=== PATIENT | female | born 1935 | race Hispanic/Latino ===

== ENCOUNTER 2017-01-18 10:41 | Outpatient (CLI) | payer MEDICARE ==
--- NOTE | 2017-01-18 12:04 | Ultrasound Report ---
ULTRASOUND BLADDER RESIDUAL: INDICATION: Chronic kidney disease, stage II. Cystitis. Patient feeling a full bladder with urge to urinate. COMPARISON: None similar. FINDINGS: Sonographic estimation of pre- and postvoid urinary bladder volume performed. Prevoid urinary bladder suboptimally distended with volume of 15 cubic centimeters. Postvoid urinary bladder volume is 2 cubic centimeters. CONCLUSION: No significant postvoid residual noted, as described. Please correlate. Thank you for the opportunity to participate in this patient's care.
== END 2017-01-18 10:42 | disposition home or self-care (01) ==
LOC: US 10:41
PROVIDERS: ATTEND Internal Medicine Nephrology
DX: N18.2 Chronic kidney disease, stage 2 (mild) (principal); N32.89 Other specified disorders of bladder
CPT/HCPCS: 76857

== ENCOUNTER 2017-04-25 10:26 | Outpatient (CLI) | payer MEDICARE ==
--- NOTE | 2017-04-26 09:46 | Ultrasound Report ---
ULTRASOUND RENAL BILATERAL HISTORY: Acute renal failure, urinary outflow obstruction. TECHNIQUE: transabdominal ultrasound with color Doppler interrogation. FINDINGS: The right kidney measures 8.7cm. Right renal cortex: 1.3cm. The left kidney measures 9.5cm. Left renal cortex: 1.4cm. Both kidneys are borderline atrophic with mild increased renal cortical echotexture. A 2.3 cm cyst with fine internal septation is noted at the inferior pole of the left kidney. No evidence for calculus, mass, hydronephrosis or perinephric fluid. The views of the bladder and the region of the ureters appear normal. The bladder is not distended. IMPRESSION: Slightly echogenic kidneys consistent with renal parenchymal disease. Slightly complex left renal cyst.
== END 2017-04-25 10:27 | disposition home or self-care (01) ==
LOC: US 10:26
PROVIDERS: ATTEND Internal Medicine Nephrology
DX: N17.8 Other acute kidney failure (principal); N13.9 Obstructive and reflux uropathy, unspecified; N28.1 Cyst of kidney, acquired
CPT/HCPCS: 76770

== ENCOUNTER 2020-05-12 14:11 | Emergency (ER) | payer MEDICARE ==
--- NOTE | 2020-05-12 14:39 | Emergency Department Report ---
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 She took an Uber home. When she got out of the UBER she tripped on her driveway. She describes a mechanical fall without any prodrome. She injured her nose and had bleeding from the left kalyn. She did complain of neck soreness. She did not strike her head. She is not on an anticoagulant. She also injured her left fifth finger/hand. Patient does not complain of headache chest pain or abdominal pain. 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 She was able to walk after the injury. She does not report any acute weakness or numbness. MD Complaint: fall -: Gradual Fall From: standing When Fall Occurred: 1 hour [employer] Fall Witnessed: yes, by bystander Place Fall Occurred: home Loss of Consciousness: none Prolonged Down Time?: no Symptoms Prior to Fall: none Location: face, neck, other Location - Extremities: Left: Hand Severity: moderate Quality: aching Context: tripped/slipped Associated Symptoms: denies - Related Data Home Medications Medication Instructions Recorded Confirmed Last Taken ALPRAZolam [ALPRAZolam Odt] 0.5 mg PO DAILY 09/14/13 11/14/15 11/13/15 18:00 Omeprazole/Sodium Bicarbonate 1 cap PO QDAY 09/14/13 11/14/15 11/13/15 18:00 [Zegerid 20-1,100 mg] Sertraline [Zoloft] 100 mg PO BID 09/14/13 11/14/15 11/13/15 18:00 Simvastatin 10 mg PO QHS 09/14/13 11/14/15 11/13/15 18:00 amLODIPine 5 mg PO DAILY 09/14/13 11/14/15 11/13/15 18:00 Multivit-Min/FA/Lycopen/Lutein 1 each PO DAILY 11/10/15 11/14/15 11/13/15 18:00 [Centrum Silver Tablet] Mv-Min/FA/Vit K/Lycop/Lut/Zeax 1 each PO DAILY 11/10/15 11/10/15 Unknown [Ocuvite Eye Plus Multi Tablet] oxyCODONE /ACETAMINOPHEN [Percocet 1 tab PO Q6HR PRN 11/10/15 11/10/15 Unknown 5/325 mg] predniSONE [Prednisone] 20 mg PO 11/14/15 11/14/15 11/13/15 08:00 Previous Rx's Medication Instructions Recorded Last Taken Type HYDROcodone/APAP 7.5-325 [[place] 1 each PO Q6HR PRN #40 tablet 11/14/15 Unknown Rx 7.5/325] HYDROcodone/APAP 5-325 [[place] 1 each PO Q6HR PRN #7 tablet 05/12/20 Unknown Rx 5/325] levoFLOXacin [Levaquin] 250 mg PO QDAY #7 tablet 05/12/20 Unknown Rx Allergies Allergy/AdvReac Type Severity Reaction Status Date / Time codeine Allergy Rash Verified 09/14/13 18:35 ibuprofen [From Motrin] Allergy Swelling Verified 09/14/13 18:35 Penicillins Allergy Rash Verified 09/14/13 18:35 ZAID Inhibitors AdvReac Unknown Verified 11/10/15 11:12 ARB-Angiotensin Receptor AdvReac Unknown Verified 11/10/15 11:12 Antagonist ED Review of Systems ROS: Stated complaint: FELL/SWOLLEN FINGER Other details as noted in HPI Constitutional: denies: chills, fever Eyes: as per HPI. denies: eye pain ENT: as per HPI, epistaxis. denies: ear pain, throat pain Respiratory: denies: cough, shortness of breath, wheezing Cardiovascular: denies: chest pain, palpitations Endocrine: no symptoms reported Gastrointestinal: denies: abdominal pain, nausea, diarrhea Genitourinary: denies: urgency, dysuria, discharge Musculoskeletal: as per HPI. 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; "GAVE ME SHOTS TO DISSOLVE 2014") Hx Arthritis: Yes Hx Headaches / Migraines: Yes (SEVERE) Hx Seizures: No Hx Asthma: Yes (No current tx) Hx COPD: No Hx HIV: No - Surgical History Hx Appendectomy: Yes Additional Surgical History: hysterectomy, neuromas between toes - Social History Smoking Status: Never Smoker Substance Use Type: None - Medications Home Medications: Home Medications Medication Instructions Recorded Confirmed Last Taken Type ALPRAZolam [ALPRAZolam Odt] 0.5 mg PO DAILY 09/14/13 11/14/15 11/13/15 18:00 History Omeprazole/Sodium Bicarbonate 1 cap PO QDAY 09/14/13 11/14/15 11/13/15 18:00 History [Zegerid 20-1,100 mg] Sertraline [Zoloft] 100 mg PO BID 09/14/13 11/14/15 11/13/15 18:00 History Simvastatin 10 mg PO QHS 09/14/13 11/14/15 11/13/15 18:00 History amLODIPine 5 mg PO DAILY 09/14/13 11/14/15 11/13/15 18:00 History Multivit-Min/FA/Lycopen/Lutein 1 each PO DAILY 11/10/15 11/14/15 11/13/15 18:00 History [Centrum Silver Tablet] Mv-Min/FA/Vit K/Lycop/Lut/Zeax 1 each PO DAILY 11/10/15 11/10/15 Unknown History [Ocuvite Eye Plus Multi Tablet] oxyCODONE /ACETAMINOPHEN [Percocet 1 tab PO Q6HR PRN 11/10/15 11/10/15 Unknown History 5/325 mg] HYDROcodone/APAP 7.5-325 [[place] 1 each PO Q6HR PRN #40 tablet 11/14/15 Unknown Rx 7.5/325] predniSONE [Prednisone] 20 mg PO 11/14/15 11/14/15 11/13/15 08:00 History HYDROcodone/APAP 5-325 [[place] 1 each PO Q6HR PRN #7 tablet 05/12/20 Unknown Rx 5/325] levoFLOXacin [Levaquin] 250 mg PO QDAY #7 tablet 05/12/20 Unknown Rx ED Physical Exam - General Limitations: No Limitations General appearance: alert, in no apparent distress - Head Head exam: Present: atraumatic, normocephalic - Eye Eye exam: Present: normal appearance. Absent: scleral icterus - ENT ENT exam: Present: other (Blood clot in left nares no active bleeding. Superficial laceration.) - Neck Neck exam: Present: normal inspection, tenderness (Diffuse paravertebral. No step-off. No midline.) - Respiratory Respiratory exam: Present: normal lung sounds bilaterally. Absent: respiratory distress - Cardiovascular Cardiovascular Exam: Present: regular rate, normal rhythm. Absent: systolic murmur, diastolic murmur, rubs, gallop - GI/Abdominal GI/Abdominal exam: Present: soft, normal bowel sounds. Absent: distended, tenderness, guarding - Extremities Exam Extremities exam: Present: other (Full range of motion of lower extremities without deformity or joint effusion. There is deformity of the left fifth digit with ecchymosis) - Back Exam Back exam: Present: normal inspection - Neurological Exam Neurological exam: Present: alert, oriented X3, CN II-XII intact. Absent: motor sensory deficit - Psychiatric Psychiatric exam: Present: normal affect, normal mood - Skin Skin exam: Present: warm, dry, other (As above indicated). Absent: rash ED Course Vital Signs 05/12/20 05/12/20 14:18 14:53 Temperature 98.3 F Pulse Rate 81 Respiratory 18 18 Rate Blood Pressure 160/67 O2 Sat by Pulse 94 94 Oximetry - Reevaluation(s) Reevaluation #1: Patient doing well. No further epistaxis. She did develop a small ecchymosis of her right knee. The knee is a full range of motion is without deformity. It is not painful on exam. She was advised as to the care of her nasal fracture and prescriptions. She declined a tetanus toxoid. She will be referred to orthopedics and be placed in a finger splint. 05/12/20 16:06 ED Medical Decision Making - Radiology Data Radiology results: image reviewed (Impacted fracture of the fifth proximal phalanx left hand) FINDINGS: FACIAL BONES: There is slight depression of the anterior most nasal bones. Additionally, there is irregularity of the nasal septum with oblique a lucency along the posterior segment at. There is notable opacification with scattered foci of air within the left at nasal cavity and correlation would be needed regarding acute traumatic process. The opacification extends along the left nasopharynx at. There is slight deviation of the nasal septum toward the right. The facial bones, including the orbital ramires, paranasal sinuses and zygomatic arches otherwise appear intact. PARANASAL SINUSES: There is opacification of the left nasal cavity as above at. There is mild mucosal thickening along the inferior left maxillary sinus and scattered within the ethmoid air cells and left frontal sinus at. The mastoid air cells are pneumatized. ORBITS: No significant post septal inflammatory changes are seen involving the orbits. The optic globes appear to demonstrate appropriate size and configuration. VISUALIZED INTRACRANIAL STRUCTURES: No significant abnormality. ADDITIONAL FINDINGS: None. IMPRESSION: 1. There is irregularity of the anterior most nasal bones and nasal septum as detailed above with opacification of the left nasal cavity indicative of acute traumatic process; correlation would be needed. IMPRESSION: 1. There is no definitive CT evidence of acute fracture involving the cervical spine. 2. There is mild to moderate curvature the cervical spine with multilevel degenerative the changes and diffuse osteopenia as detailed above. FINDINGS: Mildly displaced fracture of the base of the proximal phalanx of the little finger. Moderate degenerative changes seen in the interphalangeal joints and in the thumb carpometacarpal joint. Old healed distal radial fracture and ulnar styloid process fracture. Critical care attestation.: If time is entered above; I have spent that time in minutes in the direct care of this critically ill patient, excluding procedure time. ED Disposition Clinical Impression: Fracture of proximal phalanx of digit of left hand Qualifiers: Encounter type: initial encounter Fracture type: closed Qualified Code(s): S62.619A - Displaced fracture of proximal phalanx of unspecified finger, initial encounter for closed fracture Nasal fracture Qualifiers: Encounter type: initial encounter Fracture type: open Qualified Code(s): S02.2XXB - Fracture of nasal bones, initial encounter for open fracture Cervical strain, acute Qualifiers: Encounter type: initial encounter Qualified Code(s): S16.1XXA - Strain of muscle, fascia and tendon at neck level, initial encounter Contusion of right knee Qualifiers: Encounter type: initial encounter Qualified Code(s): S80.01XA - Contusion of right knee, initial encounter Disposition: TO HOME OR SELFCARE Is pt being admited?: No Does the pt Need Aspirin: No Condition: Stable Instructions: Muscle Strain (ED), Finger Fracture (ED) Additional Instructions: Follow-up with orthopedic doctor. Return to the emergency department any acute change or problem. Rx as directed. Prescriptions: levoFLOXacin [Levaquin] 250 mg PO QDAY #7 tablet HYDROcodone/APAP 5-325 [[place] 5/325] 1 each PO Q6HR PRN #7 tablet PRN Reason: Pain Referrals: PRIMARY CARE, [Primary Care Provider] - 3-5 Days KAMRAN CANTU MD [Staff Physician] - 2-3 Days
--- NOTE | 2020-05-12 15:44 | Cat Scan Report ---
CT cervical spine wo con INDICATION / CLINICAL INFORMATION: 84 years Female; MAIN. TECHNIQUE: Axial CT images of the cervical spine were obtained. Sagittal and coronal reformatted images were pr oduced. All CT scans at this location are performed using CT dose reduction for ALARA by means of aut omated exposure control. COMPARISON: None available. FINDINGS: POST-SURGICAL CHANGES: None. ALIGNMENT: There is mild to moderate curvature the cervical spine, convex toward the left at. However , there is no significant spondylolisthesis. VERTEBRAE: There are multilevel degenerative endplate changes at. Furthermore, there is diffuse heter ogeneous appearance of the vertebrae which appears reflect osteopenia and demineralization. However, there is no definitive CT evidence of acute fracture involving the cervical spine. INTRAVERTEBRAL DISCS: The facet and uncovertebral joint hypertrophy at C4-5 result in moderate right and mild left neural foraminal narrowing. The central disc bulge appears to efface the ventral subara chnoid space. There is marked right neural foraminal narrowing at C5-6. Mild narrowing is seen on the left. There i s mild to moderate left foraminal narrowing at C6-7. The left facet joint hypertrophy at C7-T1 also r esults in mild to moderate narrowing. PARASPINAL SOFT TISSUES: No prevertebral soft tissue fluid collections are identified at. This mild h eterogeneous enlargement of the right lobe of the thyroid gland which is nonspecific though may refle ct greater at. There is mild atherosclerotic calcification involving the carotid bifurcations bilater ally. ADDITIONAL FINDINGS: None. IMPRESSION: 1. There is no definitive CT evidence of acute fracture involving the cervical spine. 2. There is mild to moderate curvature the cervical spine with multilevel degenerative the changes an d diffuse osteopenia as detailed above. Signer Name: Gurpreet Donis MD Signed: 05/12/2020 3:40 PM Workstation Name: [id number]
--- NOTE | 2020-05-12 15:49 | XRay Report ---
LEFT HAND 3 VIEWS INDICATION / CLINICAL INFORMATION: trauma. COMPARISON: None available. FINDINGS: Mildly displaced fracture of the base of the proximal phalanx of the little finger. Moderate degenera tive changes seen in the interphalangeal joints and in the thumb carpometacarpal joint. Old healed di stal radial fracture and ulnar styloid process fracture. Signer Name: Mac LEACH Signed: 05/12/2020 3:45 PM Workstation Name: [id number]
--- NOTE | 2020-05-12 15:51 | Cat Scan Report ---
CT MAXILLOFACIAL WITHOUT CONTRAST INDICATION / CLINICAL INFORMATION: fall trauma. TECHNIQUE: All CT scans at this location are performed using CT dose reduction for ALARA by means of automated e xposure control. COMPARISON: None available. FINDINGS: FACIAL BONES: There is slight depression of the anterior most nasal bones. Additionally, there is irr egularity of the nasal septum with oblique a lucency along the posterior segment at. There is notable opacification with scattered foci of air within the left at nasal cavity and correlation would be ne eded regarding acute traumatic process. The opacification extends along the left nasopharynx at. Ther e is slight deviation of the nasal septum toward the right. The facial bones, including the orbital ramires, paranasal sinuses and zygomatic arches otherwise appea r intact. PARANASAL SINUSES: There is opacification of the left nasal cavity as above at. There is mild mucosal thickening along the inferior left maxillary sinus and scattered within the ethmoid air cells and le ft frontal sinus at. The mastoid air cells are pneumatized. ORBITS: No significant post septal inflammatory changes are seen involving the orbits. The optic glob es appear to demonstrate appropriate size and configuration. VISUALIZED INTRACRANIAL STRUCTURES: No significant abnormality. ADDITIONAL FINDINGS: None. IMPRESSION: 1. There is irregularity of the anterior most nasal bones and nasal septum as detailed above with o pacification of the left nasal cavity indicative of acute traumatic process; correlation would be nee ded. Signer Name: Grupreet Donis MD Signed: 05/12/2020 3:46 PM Workstation Name: [id number]
[2020-05-12 17:05] VITALS: BP 136/67
== END 2020-05-12 16:45 | disposition home or self-care (01) ==
LOC: ED 14:11
DX: S62.619A Displaced fracture of proximal phalanx of unspecified finger, initial encounter for closed fracture (principal); S02.2XXB Fracture of nasal bones, initial encounter for open fracture; S16.1XXA Strain of muscle, fascia and tendon at neck level, initial encounter; S80.01XA Contusion of right knee, initial encounter; I10 Essential (primary) hypertension; K21.9 Gastro-esophageal reflux disease without esophagitis; G43.909 Migraine, unspecified, not intractable, without status migrainosus; J45.909 Unspecified asthma, uncomplicated; Z79.1 Long term (current) use of non-steroidal anti-inflammatories (NSAID); Z79.2 Long term (current) use of antibiotics; Z79.4 Long term (current) use of insulin; Z79.899 Other long term (current) drug therapy; Z88.0 Allergy status to penicillin; Z88.6 Allergy status to analgesic agent; Z88.8 Allergy status to other drugs, medicaments and biological substances; Z90.710 Acquired absence of both cervix and uterus; Z98.890 Other specified postprocedural states; W18.40XA Slipping, tripping and stumbling without falling, unspecified, initial encounter; Y93.89 Activity, other specified; Y92.89 Other specified places as the place of occurrence of the external cause; Y99.8 Other external cause status
CPT/HCPCS: 70486; 72125; 82962